=== PATIENT | male | born 1945 | race Caucasian/White ===

== ENCOUNTER 2018-07-15 16:17 | Inpatient (IN) | payer MEDICARE, OTHER ==
[~2018-07-15] VITALS: Ht 170.2 cm; Wt 92.8 kg
[2018-07-15] MEDS ORDERED: SODIUM CHLORIDE 0.9% 1,000 ML IV ONE (16:42)
[2018-07-15 17:06] LABS: Basophils # (auto) 0.1 uL; Basophils % (auto) 0.4 % (0.0-2.0); Eosinophils # (auto) 0 uL; Hematocrit 44.3 % (41.0-53.0); Hemoglobin 15.3 g/dL (13.5-17.5); Lymphocytes # (auto) 1.2 uL; Lymphocytes % (auto) 7.3 % (10.0-50.0); Mean Corpuscular Hemoglobin 32.2 pg (28.0-32.0); Mean Corpuscular Hgb Conc. 34.5 g/dL (32.0-36.0); Mean Corpuscular Volume 93.2 fL (80.0-100.0); Monocytes # (auto) 1.6 uL; Monocytes % (auto) 9.9 % (0.0-12.0); Neutrophils # (auto) 13.3 uL; Neutrophils % (auto) 82.4 % (37.0-80.0); Platelet Count (auto) 184 10^3/uL (140-450); Red Blood Cells 4.75 10^6/uL (4.5-5.90); Red Cell Distribution Width 14.3 % (11.8-14.3); White Blood Cell 16.2 10^3/uL (4.4-10.8)
[2018-07-15 17:23] LABS: Anion Gap 7 (5-15); Calcium 7.7 mg/dL (8.5-10.1); Carbon Dioxide 23 mmol/L (21-32); Chloride 109 mmol/L (98-107); Glucose 188 mg/dL (74-106); Magnesium 1.8 mg/dL (1.6-2.6); Potassium 4.5 mmol/L (3.5-5.1); Sodium 139 mmol/L (136-145)
[2018-07-15 17:30] LABS: Alanine Aminotransferase 21 U/L (16-61); Alkaline Phosphatase 61 U/L (45-117); Aspartate Aminotransferase 10 U/L (15-37); BUN/Creatinine Ratio 11.5; Bilirubin, Total 3.4 mg/dL (0.2-1.0); Blood Urea Nitrogen 20 mg/dL (7-18); GFR African American 50 mL/min; GFR Non-African American 41 mL/min; Total Protein 7.4 g/dL (6.4-8.2)
[2018-07-15] MEDS ORDERED: KETOROLAC TROMETH 30 MG/ML 1ML VIAL IV ONE (17:45)
[2018-07-15] MEDS ORDERED: METOCLOPRAMIDE HCL 5MG/ml INJ 2ml VIAL IV ONE (17:45)
[2018-07-15] MEDS ORDERED: cefTRIAXone 1GM/10ml IVPUSH 10 ML IV ONE (18:00)
[2018-07-15 18:27] LABS: Urine Bacteria NONE SEEN /hpf (None Seen); Urine Blood Negative /uL (Negative); Urine Hyaline Cast MOD /lpf (0 - 2); Urine Mucus FEW (None Seen); Urine Specific Gravity 1.023 (1.001-1.035); Urine WBC 5 /hpf (0 - 3)
[2018-07-15] MEDS ORDERED: HYDROcodone-ACET 5/325MG TAB PO PRN (23:15)
[2018-07-15] MEDS ORDERED: LACTULOSE 20Gm/30ML SOLN PO PRN (23:15)
[2018-07-15 23:41] VITALS: BP 156/89
[2018-07-15 23:45] VITALS: BP 156/89
[2018-07-15] MEDS ORDERED: LACTULOSE 20Gm/30ML SOLN PO ONE (23:50)
[2018-07-16] MEDS ORDERED: metroNIDAZOLE 500MG/100ML 100 ML IV ONE
[2018-07-16 00:42] LABS: INR 1.9 (0.9-1.15); Prothrombin Time 19.6 sec (9.27-12.13)
[2018-07-16] MEDS: SODIUM CHLORIDE 0.9% 1,000 ML IV SCH ×2 (01:03→17:12)
[2018-07-16] MEDS: ACETAMINOPHEN 500 MG TAB PO PRN ×2 (02:13→17:16)
[2018-07-16 05:00] VITALS: BP 120/58
[2018-07-16 06:23] LABS: Basophils # (auto) 0 uL; Basophils % (auto) 0.2 % (0.0-2.0); Eosinophils # (auto) 0 uL; Lymphocytes # (auto) 0.8 uL; Lymphocytes % (auto) 6.1 % (10.0-50.0); Mean Corpuscular Hemoglobin 32.3 pg (28.0-32.0); Mean Corpuscular Volume 92.3 fL (80.0-100.0); Monocytes # (auto) 1.1 uL; Neutrophils # (auto) 11.8 uL; Neutrophils % (auto) 85.7 % (37.0-80.0); Platelet Count (auto) 163 10^3/uL (140-450); Red Blood Cells 4.33 10^6/uL (4.5-5.90); Red Cell Distribution Width 14.3 % (11.8-14.3); White Blood Cell 13.8 10^3/uL (4.4-10.8)
[2018-07-16 06:51] LABS: Calcium 7.9 mg/dL (8.5-10.1); Potassium 3.5 mmol/L (3.5-5.1)
[2018-07-16 06:56] LABS: BUN/Creatinine Ratio 20.5
[2018-07-16 08:00] VITALS: BP 124/83
[2018-07-16 08:54] VITALS: BP 124/83
[2018-07-16 09:34] LABS: Amylase 17 U/L (25-115); Lipase 72 U/L (73-393)
[2018-07-16] MEDS ORDERED: ENOXAPARIN SOD 100 MG/1 ML SYRINGE SC SCH ×2 (10:00)
[2018-07-16] MEDS: metroNIDAZOLE 500MG/100ML 100 ML IV SCH ×2 (10:27→17:16)
[2018-07-16] MEDS: AZITHROMYCIN 500MG/ 250ML 250 ML IV SCH (10:28)
[2018-07-16] MEDS: FAMOTIDINE 20 MG TAB PO SCH (10:28)
[2018-07-16] MEDS ORDERED: ALBU2SYP3 PO (10:53)
[2018-07-16] MEDS ORDERED: GABA300C10 PO (10:53)
[2018-07-16] MEDS ORDERED: GLIP-116 PO (10:53)
[2018-07-16] MEDS ORDERED: CYCL1TAB18 PO (10:53)
[2018-07-16] MEDS ORDERED: BENA40TA7 PO (10:53)
[2018-07-16] MEDS ORDERED: SOTA80TA PO (10:53)
[2018-07-16] MEDS ORDERED: TRAZ-220 PO (10:53)
[2018-07-16] MEDS ORDERED: PANT1INJ3 PO (10:53)
[2018-07-16] MEDS ORDERED: RIBO100C PO (10:53)
[2018-07-16] MEDS ORDERED: OMEG100062 PO (10:53)
[2018-07-16] MEDS ORDERED: SPIR25TA8 PO (10:53)
[2018-07-16] MEDS ORDERED: BUPR1TAB78 PO (10:53)
[2018-07-16] MEDS ORDERED: MULTCAP45 PO (10:53)
[2018-07-16] MEDS ORDERED: METH750T3 PO (10:53)
[2018-07-16] MEDS ORDERED: MECL25CH38 PO (10:53)
[2018-07-16] MEDS ORDERED: VENL75TA PO (10:53)
[2018-07-16] MEDS ORDERED: LORA-622 PO (10:53)
[2018-07-16] MEDS ORDERED: WARF7.5T20 PO (10:53)
[2018-07-16] MEDS ORDERED: ASPI81TA27 PO (10:53)
[2018-07-16] MEDS ORDERED: ATOR20TA50 PO (10:53)
[2018-07-16] MEDS ORDERED: ASCO500T11 PO (10:53)
[2018-07-16] MEDS ORDERED: CYAN500S8 PO (10:53)
[2018-07-16] MEDS ORDERED: ALPR0.5T7 PO (10:53)
[2018-07-16] MEDS ORDERED: TOPI50TA53 PO (10:53)
[2018-07-16] MEDS: ONDANSETRON HCL 4 MG/2 ML VIAL IV PRN (13:22)
[2018-07-16] MEDS ORDERED: IOHEXOL 300 MG/ML 100ML BOTTLE IJ ONE (15:37)
[2018-07-16] MEDS ORDERED: IPRATROPIUM BROM 0.5 MG/2.5ML INH SOL NEB PRN (15:45)
[2018-07-16] MEDS ORDERED: ALBUTEROL SULF 2.5 MG/0.5ML(0.5%) NEB SOLN NEB PRN (15:45)
[2018-07-16] MEDS ORDERED: DEXTROSE (50%) 50ML SYRG IV PRN (15:45)
[2018-07-16] MEDS: InsuLIN REG 1unit/0.01ml Soln (100units/ml) SC SCH ×2 (17:00→22:31)
[2018-07-16] MEDS: cefTRIAXone 1GM/10ml IVPUSH 10 ML IV SCH (17:11)
[2018-07-16] MEDS: ACCU-CHEK COMFORT CURVE STRIP VI SCH ×2 (17:16→22:30)
[2018-07-16 17:17] VITALS: BP 159/89
[2018-07-16 20:13] VITALS: BP 159/89
[2018-07-16 22:00] VITALS: BP 149/86
[2018-07-17] MEDS: metroNIDAZOLE 500MG/100ML 100 ML IV SCH ×3 (00:54→16:43)
[2018-07-17] MEDS: MORPHINE SULFATE 4 MG/ML SYR/VIAL IV PRN ×2 (04:36→23:54)
[2018-07-17] MEDS: SODIUM CHLORIDE 0.9% 1,000 ML IV SCH ×2 (04:37→23:54)
[2018-07-17 05:00] VITALS: BP 149/85
[2018-07-17] MEDS: ACCU-CHEK COMFORT CURVE STRIP VI SCH ×4 (06:13→21:33)
[2018-07-17] MEDS: InsuLIN REG 1unit/0.01ml Soln (100units/ml) SC SCH ×4 (06:13→21:33)
[2018-07-17 06:37] LABS: Basophils # (auto) 0 uL; Basophils % (auto) 0.2 % (0.0-2.0); Eosinophils # (auto) 0 uL; Eosinophils % (auto) 0.2 % (0.0-7.0); Hematocrit 38.2 % (41.0-53.0); Hemoglobin 13.5 g/dL (13.5-17.5); Lymphocytes # (auto) 0.8 uL; Lymphocytes % (auto) 6.6 % (10.0-50.0); Mean Corpuscular Hemoglobin 32.6 pg (28.0-32.0); Mean Corpuscular Hgb Conc. 35.3 g/dL (32.0-36.0); Mean Corpuscular Volume 92.5 fL (80.0-100.0); Monocytes % (auto) 7.7 % (0.0-12.0); Neutrophils # (auto) 10.6 uL; Neutrophils % (auto) 85.3 % (37.0-80.0); Platelet Count (auto) 172 10^3/uL (140-450); Red Blood Cells 4.13 10^6/uL (4.5-5.90); Red Cell Distribution Width 14.2 % (11.8-14.3); White Blood Cell 12.5 10^3/uL (4.4-10.8)
[2018-07-17 06:47] LABS: INR 1.51 (0.9-1.15); Prothrombin Time 15.8 sec (9.27-12.13)
[2018-07-17 07:02] LABS: Potassium 3.5 mmol/L (3.5-5.1)
[2018-07-17 07:12] LABS: Albumin 2.7 g/dL (3.4-5.0); BUN/Creatinine Ratio 18.9; Calcium 8.2 mg/dL (8.5-10.1); Magnesium 1.7 mg/dL (1.6-2.6)
[2018-07-17 08:00] VITALS: BP 154/87
[2018-07-17] MEDS ORDERED: PHYTONADIONE (VIT K)10 MG/ML 1ML VIAL SUBCUT ONE ×2 (08:30→12:45)
[2018-07-17 09:20] VITALS: BP 154/87
[2018-07-17] MEDS: AZITHROMYCIN 500MG/ 250ML 250 ML IV SCH (09:56)
[2018-07-17] MEDS: FAMOTIDINE 20 MG TAB PO SCH (09:57)
[2018-07-17 12:01] LABS: INR 1.42 (0.9-1.15); Prothrombin Time 14.9 sec (9.27-12.13)
[2018-07-17 12:34] VITALS: BP 152/88
[2018-07-17] MEDS ORDERED: MAGNESIUM SULFATE 1GM/100ML 100 ML IV ONE (13:00)
[2018-07-17] MEDS: SOTALOL HCL 80 MG TAB PO SCH ×2 (13:20→21:14)
[2018-07-17] MEDS: ONDANSETRON HCL 4 MG/2 ML VIAL IV PRN (16:39)
[2018-07-17 16:58] VITALS: BP 150/86
[2018-07-17] MEDS: cefTRIAXone 1GM/10ml IVPUSH 10 ML IV SCH (17:30)
[2018-07-17] MEDS: ACETAMINOPHEN 500 MG TAB PO PRN (17:40)
[2018-07-17 21:37] VITALS: BP 140/81
[2018-07-18] MEDS: metroNIDAZOLE 500MG/100ML 100 ML IV SCH ×3 (00:31→17:02)
[2018-07-18 04:32] VITALS: BP 144/81
[2018-07-18 06:10] LABS: Basophils # (auto) 0 uL; Basophils % (auto) 0.2 % (0.0-2.0); Eosinophils # (auto) 0 uL; Eosinophils % (auto) 0.3 % (0.0-7.0); Hematocrit 42.3 % (41.0-53.0); Hemoglobin 14.8 g/dL (13.5-17.5); Lymphocytes # (auto) 0.9 uL; Lymphocytes % (auto) 6.9 % (10.0-50.0); Mean Corpuscular Hemoglobin 32.8 pg (28.0-32.0); Mean Corpuscular Hgb Conc. 35.1 g/dL (32.0-36.0); Mean Corpuscular Volume 93.5 fL (80.0-100.0); Monocytes # (auto) 0.7 uL; Monocytes % (auto) 5.6 % (0.0-12.0); Neutrophils # (auto) 11.5 uL; Nucleated Red Blood Cells % 0.2 %; Platelet Count (auto) 234 10^3/uL (140-450); Red Blood Cells 4.52 10^6/uL (4.5-5.90); White Blood Cell 13.3 10^3/uL (4.4-10.8)
[2018-07-18] MEDS: ACCU-CHEK COMFORT CURVE STRIP VI SCH ×4 (06:20→21:58)
[2018-07-18] MEDS: InsuLIN REG 1unit/0.01ml Soln (100units/ml) SC SCH ×4 (06:21→22:06)
[2018-07-18 06:22] LABS: INR 1.25 (0.9-1.15); Prothrombin Time 13.2 sec (9.27-12.13)
[2018-07-18 06:29] LABS: BUN/Creatinine Ratio 15.5; Calcium 8.2 mg/dL (8.5-10.1); Magnesium 2.3 mg/dL (1.6-2.6); Potassium 3.7 mmol/L (3.5-5.1)
[2018-07-18 07:57] VITALS: BP 148/85
[2018-07-18] MEDS: ACETAMINOPHEN 500 MG TAB PO PRN (08:08)
[2018-07-18] MEDS: FAMOTIDINE 20 MG TAB PO SCH (09:20)
[2018-07-18] MEDS: AZITHROMYCIN 500MG/ 250ML 250 ML IV SCH (09:20)
[2018-07-18] MEDS: SOTALOL HCL 80 MG TAB PO SCH ×2 (09:23→21:58)
[2018-07-18] MEDS ORDERED: fentaNYL CITRATE 5 ML ONE (11:41)
[2018-07-18] MEDS ORDERED: ROCURONIUM 10MG/ML 10ML VIAL IV ONE (11:41)
[2018-07-18] MEDS ORDERED: MIDAZOLAM HCL 1MG/1ML-2 ML VIAL ONE (11:41)
[2018-07-18] MEDS ORDERED: PROPOFOL 10 MG/ML 20 ML IV ONE (11:42)
[2018-07-18] MEDS ORDERED: ePHEDrine SULFATE 50 MG/ML AMP IV PRN (13:00)
[2018-07-18] MEDS ORDERED: ONDANSETRON HCL 4 MG/2 ML VIAL IV ONE (13:00)
[2018-07-18] MEDS ORDERED: hydrALAZINE HCL 20 MG/ML VL IV PRN (13:00)
[2018-07-18] MEDS ORDERED: LEVOFLOXACIN 500MG 100 ML IV ONE (13:00)
[2018-07-18] MEDS: MORPHINE SULFATE 4 MG/ML SYR/VIAL IV PRN ×4 (13:17→18:32)
[2018-07-18] MEDS: ONDANSETRON HCL 4 MG/2 ML VIAL IV PRN ×2 (14:27→18:33)
[2018-07-18 16:48] VITALS: BP 146/81
[2018-07-18] MEDS: SODIUM CHLORIDE 0.9% 1,000 ML IV SCH (17:36)
[2018-07-18 20:00] VITALS: BP 153/91
[2018-07-18 21:30] VITALS: BP 153/91
[2018-07-18 22:05] LABS: Urine Bacteria NONE SEEN /hpf (None Seen); Urine Blood 2+ /uL (Negative); Urine Specific Gravity 1.021 (1.001-1.035); Urine WBC 3 /hpf (0 - 3)
[2018-07-18 23:05] VITALS: BP 129/76
[2018-07-19] VITALS (7 sets, daily range): BP systolic 118–159; BP diastolic 51–96
[2018-07-19] MEDS: metroNIDAZOLE 500MG/100ML 100 ML IV SCH ×3 (01:15→16:42)
[2018-07-19 05:25] LABS: Basophils # (auto) 0 uL; Basophils % (auto) 0.1 % (0.0-2.0); Eosinophils # (auto) 0 uL; Hematocrit 36.3 % (41.0-53.0); Hemoglobin 12.6 g/dL (13.5-17.5); Lymphocytes # (auto) 0.5 uL; Mean Corpuscular Hemoglobin 32.6 pg (28.0-32.0); Mean Corpuscular Hgb Conc. 34.8 g/dL (32.0-36.0); Mean Corpuscular Volume 93.8 fL (80.0-100.0); Monocytes # (auto) 0.6 uL; Monocytes % (auto) 6.5 % (0.0-12.0); Neutrophils # (auto) 8.5 uL; Neutrophils % (auto) 88.4 % (37.0-80.0); Nucleated Red Blood Cells % 0.1 %; Platelet Count (auto) 186 10^3/uL (140-450); Red Blood Cells 3.86 10^6/uL (4.5-5.90); Red Cell Distribution Width 14.7 % (11.8-14.3); White Blood Cell 9.6 10^3/uL (4.4-10.8)
[2018-07-19 05:34] LABS: INR 1.27 (0.9-1.15); Prothrombin Time 13.4 sec (9.27-12.13)
[2018-07-19 05:45] LABS: Calcium 7.9 mg/dL (8.5-10.1); Potassium 4.3 mmol/L (3.5-5.1)
[2018-07-19 05:49] LABS: Albumin 2.2 g/dL (3.4-5.0)
[2018-07-19 05:51] LABS: Total Protein 6.5 g/dL (6.4-8.2)
[2018-07-19] MEDS: ACCU-CHEK COMFORT CURVE STRIP VI SCH ×4 (06:03→22:00)
[2018-07-19] MEDS: InsuLIN REG 1unit/0.01ml Soln (100units/ml) SC SCH ×4 (06:04→22:38)
[2018-07-19] MEDS: FAMOTIDINE 20 MG TAB PO SCH (10:55)
[2018-07-19] MEDS: SOTALOL HCL 80 MG TAB PO SCH ×2 (10:55→22:04)
[2018-07-19] MEDS: LEVOFLOXACIN 500MG 100 ML IV SCH (13:57)
[2018-07-19] MEDS: SODIUM CHLORIDE 0.9% 1,000 ML IV SCH (13:58)
[2018-07-19] MEDS ORDERED: WARFARIN SODIUM 5 MG TAB PO ONE (22:30)
[2018-07-19] MEDS: HYDROcodone-ACET 5/325MG TAB PO PRN (22:38)
[2018-07-20] MEDS: metroNIDAZOLE 500MG/100ML 100 ML IV SCH ×3 (00:48→17:00)
[2018-07-20] MEDS: SODIUM CHLORIDE 0.9% 1,000 ML IV SCH (00:49)
[2018-07-20 05:00] VITALS: BP 111/67
[2018-07-20 06:36] LABS: Basophils # (auto) 0 uL; Basophils % (auto) 0.1 % (0.0-2.0); Eosinophils # (auto) 0 uL; Eosinophils % (auto) 0.3 % (0.0-7.0); Hemoglobin 11.8 g/dL (13.5-17.5); Lymphocytes # (auto) 0.9 uL; Lymphocytes % (auto) 8.9 % (10.0-50.0); Mean Corpuscular Hemoglobin 32.4 pg (28.0-32.0); Mean Corpuscular Hgb Conc. 34.7 g/dL (32.0-36.0); Mean Corpuscular Volume 93.3 fL (80.0-100.0); Monocytes # (auto) 0.7 uL; Monocytes % (auto) 6.9 % (0.0-12.0); Neutrophils # (auto) 8.2 uL; Neutrophils % (auto) 83.8 % (37.0-80.0); Nucleated Red Blood Cells % 0.1 %; Platelet Count (auto) 209 10^3/uL (140-450); Red Blood Cells 3.64 10^6/uL (4.5-5.90); Red Cell Distribution Width 14.5 % (11.8-14.3); White Blood Cell 9.7 10^3/uL (4.4-10.8)
[2018-07-20 06:44] LABS: INR 1.18 (0.9-1.15); Partial Thromboplastin Time 34.8 sec (23.78-33.04); Prothrombin Time 12.5 sec (9.27-12.13)
[2018-07-20] MEDS: ACCU-CHEK COMFORT CURVE STRIP VI SCH ×3 (06:54→17:00)
[2018-07-20] MEDS: InsuLIN REG 1unit/0.01ml Soln (100units/ml) SC SCH ×3 (06:54→17:00)
[2018-07-20] MEDS: HYDROcodone-ACET 5/325MG TAB PO PRN (07:10)
[2018-07-20 08:54] VITALS: BP 138/86
[2018-07-20] MEDS: SOTALOL HCL 80 MG TAB PO SCH (09:36)
[2018-07-20] MEDS: FAMOTIDINE 20 MG TAB PO SCH (09:36)
[2018-07-20] MEDS ORDERED: LEVO500T21 PO (11:37)
[2018-07-20] MEDS ORDERED: METR500T PO (11:37)
[2018-07-20 13:00] VITALS: BP 136/84
[2018-07-20] MEDS: LEVOFLOXACIN 500MG 100 ML IV SCH (13:24)
[2018-07-20 15:59] VITALS: BP 136/84
[2018-07-20] MEDS ORDERED: WARFARIN SODIUM 2.5 MG TAB PO ONE (17:00)
[2018-07-20 17:07] VITALS: BP 136/80
== END 2018-07-20 19:09 | disposition home or self-care (01) | DRG 853 ==
LOC: ER 16:17 → EDBD 16:17 → OVERFLOW 16:18 → WEST WING 23:59
PROVIDERS: ADMIT Nurse Practitioner Family; ATTEND Internal Medicine
PROC: 0FT44ZZ Resection of Gallbladder, Percutaneous Endoscopic Approach (ICD-10-PCS; principal; 2018-07-18 11:33)
DX: A41.9 Sepsis, unspecified organism (principal); N17.0 Acute kidney failure with tubular necrosis; E44.0 Moderate protein-calorie malnutrition; J98.11 Atelectasis; K80.12 Calculus of gallbladder with acute and chronic cholecystitis without obstruction; N39.0 Urinary tract infection, site not specified; B95.2 Enterococcus as the cause of diseases classified elsewhere; D35.02 Benign neoplasm of left adrenal gland; D64.9 Anemia, unspecified; E66.01 Morbid (severe) obesity due to excess calories; E78.00 Pure hypercholesterolemia, unspecified; E11.9 Type 2 diabetes mellitus without complications; F32.9 Major depressive disorder, single episode, unspecified; F41.9 Anxiety disorder, unspecified; I10 Essential (primary) hypertension; I48.0 Paroxysmal atrial fibrillation; K59.00 Constipation, unspecified; K76.0 Fatty (change of) liver, not elsewhere classified; M47.26 Other spondylosis with radiculopathy, lumbar region; M47.896 Other spondylosis, lumbar region; M51.16 Intervertebral disc disorders with radiculopathy, lumbar region; N28.1 Cyst of kidney, acquired; Z79.01 Long term (current) use of anticoagulants; Z88.8 Allergy status to other drugs, medicaments and biological substances; Z68.32 Body mass index [BMI] 32.0-32.9, adult
CPT/HCPCS: 36415; 71046; 74176; 74177; 74181; 76705; 80048; 80053; 80061; 81001; 82150; 82247; 82962; 83036; 83690; 83735; 83880; 84443; 84484; 85025; 85610; 85730; 86850; 86900; 86901; 87040; 87086; 87088; 87186; 93005; 96374; 96375; A6257; J0696; J1815; J1885; J1956; J2250; J2405; J2704; J3430; J3490

== ENCOUNTER 2021-04-04 23:32 | Emergency (ER) | payer OTHER, MEDICARE ==
[~2021-04-04] VITALS: Ht 180.3 cm; Wt 90.7 kg
[~2021-04-04 23:32] MED LIST: ALBU2SYP3 PO; ALPR0.5T7 PO; ASCO500T11 PO; ASPI-543 PO; ATOR20TA50 PO; BENA40TA8 PO; BUPR200T7 PO; CYAN500S8 PO; CYCL10TA6 PO; GABA300C10 PO; GLIP10TA9 PO; LEVO500T31 PO; LORA-622 PO; MECL25CH38 PO; METH750T22 PO; METR500T PO; MULTCAP45 PO; OMEG100062 PO; PANT1INJ3 PO; RIBO100C PO; SOTA80TA PO; SPIR25TA8 PO; TOPI50TA53 PO; TRAZ-220 PO; VENL1TAB99 PO; WARF7.5T20 PO
[2021-04-05 01:10] LABS: Basophils # (auto) 0 10 ^3/uL (0-0.2); Basophils % (auto) 0.5 % (0.0-2.0); Eosinophils # (auto) 0.1 10 ^3/uL (0-0.8); Eosinophils % (auto) 1.9 % (0.0-7.0); Hematocrit 40.3 % (41.0-53.0); Lymphocytes # (auto) 1.4 10 ^3/uL (0.4-5.4); Lymphocytes % (auto) 23.8 % (10.0-50.0); Mean Corpuscular Hemoglobin 32.1 pg (28.0-32.0); Mean Corpuscular Hgb Conc. 34.8 g/dL (32.0-36.0); Monocytes # (auto) 0.5 10 ^3/uL (0-1.3); Neutrophils # (auto) 3.8 10 ^3/uL (1.6-8.6); Neutrophils % (auto) 64.8 % (37.0-80.0); Nucleated Red Blood Cells % 0.1 %; Platelet Count (auto) 175 10^3/uL (140-450); Red Blood Cells 4.38 10^6/uL (4.5-5.90); Red Cell Distribution Width 13.6 % (11.8-14.3); White Blood Cell 5.9 10^3/uL (4.4-10.8)
[2021-04-05 01:23] LABS: INR 1.09 (0.9-1.15); Partial Thromboplastin Time 29.3 sec (23.0-31.2)
[2021-04-05 01:26] LABS: Albumin 3.3 g/dL (3.4-5.0); Calcium 8.1 mg/dL (8.5-10.1); Magnesium 1.9 mg/dL (1.6-2.6); Potassium 3.7 mmol/L (3.5-5.1)
[2021-04-05 01:28] LABS: BUN/Creatinine Ratio 18.9
[2021-04-05 01:31] LABS: Bilirubin, Total 0.9 mg/dL (0.2-1.0); Total Protein 6.8 g/dL (6.4-8.2)
[2021-04-05 06:10] VITALS: BP 130/73
== END 2021-04-05 06:17 | disposition home or self-care (01) ==
LOC: EDBD 23:32 → ER 23:39
DX: S06.5X0A Traumatic subdural hemorrhage without loss of consciousness, initial encounter (principal); R51.9 Headache, unspecified; I10 Essential (primary) hypertension; E11.9 Type 2 diabetes mellitus without complications; I48.91 Unspecified atrial fibrillation; Z98.890 Other specified postprocedural states; Z86.73 Personal history of transient ischemic attack (TIA), and cerebral infarction without residual deficits; X58.XXXA Exposure to other specified factors, initial encounter; Y93.89 Activity, other specified; Y92.89 Other specified places as the place of occurrence of the external cause; Y99.8 Other external cause status
CPT/HCPCS: 36415; 70450; 71045; 80053; 83735; 85025; 85049; 85610; 85730; 93005

== ENCOUNTER 2021-04-20 10:12 | Emergency (ER) | payer MEDICARE, OTHER ==
[~2021-04-20] VITALS: Ht 180.3 cm; Wt 97.5 kg
[2021-04-20 11:05] LABS: Basophils # (auto) 0 10 ^3/uL (0-0.2); Basophils % (auto) 0.6 % (0.0-2.0); Eosinophils # (auto) 0 10 ^3/uL (0-0.8); Eosinophils % (auto) 0.6 % (0.0-7.0); Hematocrit 42.3 % (41.0-53.0); Hemoglobin 14.7 g/dL (13.5-17.5); Lymphocytes % (auto) 12.7 % (10.0-50.0); Mean Corpuscular Hemoglobin 31.9 pg (28.0-32.0); Mean Corpuscular Hgb Conc. 34.9 g/dL (32.0-36.0); Mean Corpuscular Volume 91.5 fL (80.0-100.0); Monocytes # (auto) 0.5 10 ^3/uL (0-1.3); Monocytes % (auto) 6.7 % (0.0-12.0); Neutrophils # (auto) 6.2 10 ^3/uL (1.6-8.6); Neutrophils % (auto) 79.4 % (37.0-80.0); Red Blood Cells 4.62 10^6/uL (4.5-5.90); Red Cell Distribution Width 13.8 % (11.8-14.3); White Blood Cell 7.8 10^3/uL (4.4-10.8)
[2021-04-20 11:22] LABS: INR 1.13 (0.9-1.15); Partial Thromboplastin Time 32.2 sec (23.0-31.2)
[2021-04-20 11:27] LABS: Alanine Aminotransferase 31 U/L (16-61); Albumin 3.6 g/dL (3.4-5.0); Anion Gap 4 (5-15); Aspartate Aminotransferase 22 U/L (15-37); Blood Urea Nitrogen 15 mg/dL (7-18); Calcium 8.6 mg/dL (8.5-10.1); Carbon Dioxide 25 mmol/L (21-32); Chloride 108 mmol/L (98-107); Glucose 135 mg/dL (74-106); Magnesium 2.3 mg/dL (1.6-2.6); Potassium 3.8 mmol/L (3.5-5.1); Sodium 137 mmol/L (136-145)
[2021-04-20 11:32] LABS: Alkaline Phosphatase 89 U/L (45-117); Bilirubin, Total 1.4 mg/dL (0.2-1.0); GFR African American 124 mL/min; GFR Non-African American 102 mL/min; Total Protein 7.7 g/dL (6.4-8.2)
[2021-04-20 12:15] VITALS: BP 143/82
== END 2021-04-20 12:22 | disposition short-term general hospital (02) ==
LOC: EDBD 10:12 → ER 10:12
DX: S06.5X9A Traumatic subdural hemorrhage with loss of consciousness of unspecified duration, initial encounter (principal); I48.91 Unspecified atrial fibrillation; E11.9 Type 2 diabetes mellitus without complications; I10 Essential (primary) hypertension; E78.5 Hyperlipidemia, unspecified; Z86.73 Personal history of transient ischemic attack (TIA), and cerebral infarction without residual deficits; Z79.899 Other long term (current) drug therapy; Z79.01 Long term (current) use of anticoagulants; Z88.8 Allergy status to other drugs, medicaments and biological substances; X58.XXXA Exposure to other specified factors, initial encounter; Y93.89 Activity, other specified; Y92.89 Other specified places as the place of occurrence of the external cause; Y99.8 Other external cause status
CPT/HCPCS: 36415; 70450; 71045; 80053; 83735; 84484; 85025; 85610; 85730; 93005

== ENCOUNTER 2021-11-24 03:14 | Emergency (ER) | payer OTHER ==
[~2021-11-24] VITALS: Ht 172.7 cm; Wt 90.7 kg
[~2021-11-24 03:14] MED LIST changes: +CYCL-839 PO; -CYCL10TA6 PO
[2021-11-24] MEDS ORDERED: METOCLOPRAMIDE HCL 10 MG TAB PO ONE ×2 (05:30→05:47)
[2021-11-24 07:15] VITALS: BP 171/92
== END 2021-11-24 07:28 | disposition home or self-care (01) ==
LOC: ER 03:14
DX: I10 Essential (primary) hypertension (principal); H65.02 Acute serous otitis media, left ear; H70.12 Chronic mastoiditis, left ear; I48.91 Unspecified atrial fibrillation; E11.9 Type 2 diabetes mellitus without complications; Z90.49 Acquired absence of other specified parts of digestive tract; Z79.01 Long term (current) use of anticoagulants; Z79.82 Long term (current) use of aspirin; Z79.899 Other long term (current) drug therapy; Z88.8 Allergy status to other drugs, medicaments and biological substances
CPT/HCPCS: 70450; 99284; J8597